=== PATIENT | male | born 1940 | race Caucasian/White ===

== ENCOUNTER 2017-03-24 06:53 | Day surgery (SDC) | payer OTHER ==
[~2017-03-24] VITALS: Ht 177.8 cm; Wt 95.5 kg
[2017-03-24] VITALS (8 sets, daily range): BP systolic 124–136; BP diastolic 70–85; PULSE 79–95; TEMP 36.4–37.2; O2SAT 93–96; Ht 177.8 cm; Wt 95.5 kg
[~2017-03-24 06:53] MED LIST: BMX1 PO; CEFAZOLIN 1000MG IV PUSH 5 ML IV SCH; CLON0.5T3 PO; CRG25 PO; CRS10 PO; LACTATED RINGER'S 1000ML 1,000 ML IV SCH; SYN88 PO; [UNRECOGNIZED DRUG - CODE]
[2017-03-24] MEDS ORDERED: APIX1TAB3 PO (08:04)
[2017-03-24] MEDS ORDERED: PSYL28.310 PO (08:04)
[2017-03-24] MEDS ORDERED: PARO1TAB27 PO (08:04)
[2017-03-24] MEDS ORDERED: MELA1TAB3 PO (08:13)
[2017-03-24] MEDS ORDERED: DILT120C68 PO (08:13)
[2017-03-24] MEDS ORDERED: ACET325T96 PO (08:13)
[2017-03-24] MEDS ORDERED: POTA20TA16 PO (08:13)
[2017-03-24] MEDS ORDERED: FERR1TAB13 PO (08:13)
[2017-03-24] MEDS ORDERED: IMDSR/30 PO (08:13)
[2017-03-24] MEDS ORDERED: BRIN1SUS OPL (08:13)
[2017-03-24] MEDS ORDERED: CLON0.5T3 PO (08:13)
[2017-03-24] MEDS ORDERED: AMLO-114 PO (08:13)
[2017-03-24] MEDS ORDERED: METO100T14 PO (08:13)
[2017-03-24] MEDS ORDERED: SENN-61 PO (08:13)
[2017-03-24 08:14] LABS: HEMATOCRIT 38.2 % (42-52); MEAN CORPUSCULAR HEMOGLOBIN 28.6 pg (25-34); MEAN PLATELET VOLUME 10.4 fL (7.4-10.4); PLATELET COUNT 129 K/uL (130-400); RED BLOOD COUNT 4.44 M/uL (4.7-6.1); WHITE BLOOD COUNT 6.83 K/uL (4.8-10.8)
[2017-03-24 08:21] LABS: INR 1.1 (0.9-1.1); PARTIAL THROMBOPLASTIN RATIO 1.2; PROTHROMBIN TIME (PATIENT) 11.9 SECONDS (9.0-12.0)
[2017-03-24 08:23] LABS: MEAN CORPUSCULAR HGB CONC 33.2 g/dl (32-36)
[2017-03-24 08:33] LABS: BUN/CREATININE RATIO 18.9 (10-20); CALCIUM 9.3 mg/dl (8.5-10.1); CREATININE 0.93 mg/dl (0.60-1.40); POTASSIUM 4.1 mmol/L (3.5-5.1)
--- NOTE | 2017-03-24 08:41 | History & Physical Bridge Note ---
H&P Re-Evaluation Bridge Note: I have examined the patient, reviewed the History & Physical and in the interval since the performance of the History & Physical I have noted the following changes of clinical significance: No changes noted. I reviewed the indications, procedure, risks and alternatives of ICD replacement with him and he understands and agrees to proceed. Consent obtained. Most likely will not have to replace the lead but I reviewed the possibility of that as well. Since he is in permanent atrial fibrillation now on a replace the device with a single -chamber unit.
--- NOTE | 2017-03-24 08:42 | Procedure Note ---
Pre-Mod Sedation Assessment General Date of Moderate Sedation: Mar 24, 2017. Vital Signs: Vital Signs Past 12 Hours Date Time Temp Pulse Resp B/P (MAP) Pulse Ox O2 Delivery O2 Flow Rate FiO2 03/24/17 08:14 36.6 89 20 133/79 (97) 93 Room Air Review Cardiovascular: + irregularly irregular Abdomen: normal bowel sounds Lungs: lungs clear Pre-Sedation Airway Assessment Oral Cavity: Dentures Hx of Sleep Apnea: No Smoking Status: Former Smoker Procedure Planning Contraindications-for Mod Sed: None Yes Notes The planned sedation has been discussed with the patient and consent obtained. I have identified the patient, determined the appropriateness of sedation and have assessed the patient immediately prior to the procedure. All medicine(s) and interventions are by my order.
[2017-03-24] MEDS ORDERED: BACITRACIN OINT 0.9 GM PKT ONE (08:52)
[2017-03-24] MEDS ORDERED: BACITRACIN 50000 UNIT VIAL ONE (08:52)
[2017-03-24] MEDS ORDERED: MIDAZOLAM HCL 5 MG/ML 1 ML VIAL ONE (08:52)
[2017-03-24] MEDS ORDERED: FENTANYL CITRATE INJ 50 MCG/1 ML 2 ML VIAL ONE (08:52)
[2017-03-24] MEDS ORDERED: LIDOCAINE HCL 1% 20 ML VIAL ONE (08:52)
--- NOTE | 2017-03-24 10:02 | [facility] Operative Report ---
Operative Report Operative Date Mar 24, 2017. Pre-Operative Diagnosis ICD at [facility] Post-Operative Diagnosis same Procedure(s) Performed Dual-chamber ICD replacement Surgeon Dr. España Director Of Gift Planning Surgeon(s) none Estimated Blood Loss 20 cc Findings Good lead measurements Specimens Old ICD, return to [employer] Anesthesia local with sedation Complication(s) None Disposition Recovery Room / PACU Description of Procedure After obtaining informed consent for the procedure, the patient was brought to the laboratory being NPO after midnight. After identification in the laboratory the patient was prepped and draped in the standard sterile manner for a left- sided device replacement. The left prepectoral region was anesthetized with 1% lidocaine local anesthetic and once adequate anesthesia was obtained a 6 cm incision was made through the old implant scar and carried down to the ICD generator. The generator was dissected free of tissue and explanted. A bacitracin-soaked sponge(50,000 units in 50 cc normal saline solution) was placed in the pocket. The ICD was removed from the leads and connected to an external pacing system. Pacing and sensing characteristics were evaluated in both the atrial and ventricular leads as noted on the implant data sheet. A new ICD was attached to the leads and found to be functioning normally. The bacitracin-soaked sponge was removed from the pocket, the ICD was placed in the pocket with the leads coiled beneath it. The incision was closed with a running double subcutaneous closure of 3-0 V-Lock absorbable suture followed by a running subcuticular skin closure of 4-0 V lock absorbable suture. The patient tolerated the procedure well, there were no complications and the patient was transferred to the same-day surgery unit for observation and subsequent discharge. I attest to the content of the Intraoperative Record and any orders documented therein. Any exceptions are noted below.
--- NOTE | 2017-03-24 10:05 | Procedure Note ---
Post-Mod Sedation Assessment General Date of Moderate Sedation Mar 24, 2017. Vital Signs: Vital Signs Past 12 Hours Date Time Temp Pulse Resp B/P (MAP) Pulse Ox O2 Delivery O2 Flow Rate FiO2 03/24/17 08:14 36.6 89 20 133/79 (97) 93 Room Air Review - Discharge Criteria Vital Signs Stable: Yes Alert/Oriented/Conversant: Yes Returned to Baseline Mental St: Yes Nausea Absent/Minimal: Yes Pain/Discomfort/Absent/Minimal: Yes Normal/Baseline Respirations: Yes Active Bleeding?: No
[2017-03-24] MEDS ORDERED: KETOROLAC TROMETHAMINE 10 MG TAB PO PRN (10:15)
[2017-03-24] MEDS ORDERED: ACETAMINOPHEN 325 MG TAB PO PRN (10:15)
[2017-03-24] MEDS ORDERED: CEPH500C2 PO (11:51)
--- NOTE | 2017-03-24 11:54 | Discharge Instructions ---
Discharge Instructions Date of Service Mar 24, 2017. Admission Reason for Admission: ICD battery depletion Discharge Discharge Diagnosis / Problem: ICD replacement Discharge Goals Goal(s): Improve disease control Activity Recommendations Activity Limitations: resume your previous activity . Instructions / Follow-Up Instructions / Follow-Up ACTIVITY RECOMMENDATIONS: * Do not raise affected arm over head for 2 weeks. SPECIAL CARE INSTRUCTIONS: * If bleeding occurs, apply direct pressure to area for 5 minutes. * Call your doctor if you have severe pain, fever, drainage or bleeding at site. * Keep dressing on and dry for 72 hours then remove. * Keep any scheduled doctor's appointment. * Implant Card - hand held device with website information given. SKIN IRRITATION: * You may experience some redness and/or swelling in the area where radiation was administered. If any skin irritation occurs, please contact your family physician. FOLLOW UP VISIT: Keep any scheduled doctor appointments. Current Hospital Diet Patient's current hospital diet: AHA Diet (Heart Healthy) Discharge Diet Recommended Diet: AHA Diet (Heart Healthy) Pending Studies Studies pending at discharge: no Medical Emergencies . Who to Call and When: Medical Emergencies: If at any time you feel your situation is an emergency, please call 911 immediately. . Non-Emergent Contact Non-Emergency issues call your: Primary Care Provider . . "Provider Documentation" section prepared by Arnold España. . VTE Core Measure Inpt VTE Proph given/why not?: Treatment not indicated
== END 2017-03-24 12:40 | disposition home or self-care (01) ==
LOC: C.ACU 06:53
PROVIDERS: ATTEND Internal Medicine Cardiovascular Disease
DX: I48.2 Chronic atrial fibrillation (principal); I42.8 Other cardiomyopathies; I47.2 Ventricular tachycardia; Z95.810 Presence of automatic (implantable) cardiac defibrillator; I10 Essential (primary) hypertension; H54.8 Legal blindness, as defined in USA